=== PATIENT | female | born 1985 | race Caucasian/White ===

== ENCOUNTER 2023-05-14 11:52 | Day surgery (SDC) | payer OTHER ==
[~2023-05-14] VITALS: Ht 172.7 cm; Wt 86.7 kg
[~2023-05-14 11:52] MED LIST: LIDOCAINE 2%, 20 ML MDV ONE; NORMAL SALINE 10 ML VIAL ONE; iopamidoL 50 ML VIAL IV ONE; methylPREDNISolone ACETATE 40 MG/ML ONE
[2023-05-14] MEDS ORDERED: DIPHENHYDRAMINE INJ 50 MG/ML VIAL ONE (12:57)
[2023-05-14 14:05] VITALS: O2SAT 100
[2023-05-14 14:14] LABS: HCG,QUAL RESULT NEGATIVE (NEGATIVE)
[2023-05-14] MEDS: MIDAZOLAM HCL 5 MG/5 ML VIAL ONE (14:59)
[2023-05-14] MEDS: fentaNYL CITRATE/PF 100 MCG/2 ML AMP ONE (15:02)
[2023-05-14 19:10] VITALS: BP_SYST 100; PULSE 71; RESP 17
== END 2023-05-14 16:10 | disposition home or self-care (01) ==
LOC: SDS 11:52 → SMU 11:54 → SDS 16:10
PROVIDERS: ATTEND Internal Medicine
DX: M51.16 Intervertebral disc disorders with radiculopathy, lumbar region (principal); Z91.040 Latex allergy status; Z98.890 Other specified postprocedural states; Z79.899 Other long term (current) drug therapy
CPT/HCPCS: 62323; 84703; J1030; J2250; J3010; Q9967; 76000; J1200; J2001